=== PATIENT | female | born 1965 | race American Indian/Alaskan Native ===

== ENCOUNTER 2021-09-07 07:07 | Outpatient (CLI) | payer BC ==
--- NOTE | 2021-09-10 16:38 | Mammography Report ---
DIGITAL SCREENING MAMMOGRAM WITH CAD, 09/07/2021 CLINICAL INFORMATION / INDICATION: Routine screening mammography. TECHNIQUE: Digital bilateral 2D mammography was obtained in the craniocaudal and mediolateral obliqu e projections. This examination was interpreted with the benefit of Computer-Aided Detection analysis . COMPARISON: Prior right mammogram 03/13/2011 FINDINGS: Breast Density: There are scattered areas of fibroglandular density. No dominant mass, suspicious calcifications, or architectural distortion in either breast. There is a calcified 1.6 cm benign mass in the upper outer quadrant of the right breast with associat ed biopsy clip. 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 This mass was present on the 2010 mammogram and has decreased in size slightly. There is a second biopsy clip in a stable paulette ign mass at 12:00, middle depth.. No other significant finding within either breast. IMPRESSION: No mammographic evidence of malignancy. Follow up recommendation: Routine yearly screening mammogram. BI-RADS Category 2: BENIGN. A "normal" or negative report should not discourage follow up or biopsy of a clinically significant f inding. A written summary of these findings will be mailed to the patient. The patient will be entered into a mammography reporting system which will generate a reminder letter for the patient's next appointmen t at the appropriate interval. The [employer] recommends yearly mammograms starting at age 40 and continuing as l trena as a woman is in good health. Breast MRI is recommended for women with an approximate 20-25% or greater lifetime risk of breast cancer, including women with a strong family history of breast or ova helga cancer or who have been treated for Hodgkin's disease. Signer Name: Cheri Hart MD Signed: 09/10/2021 4:34 PM Workstation Name: [id number]
== END 2021-09-07 07:08 | disposition home or self-care (01) ==
LOC: MAMMO 07:07
PROVIDERS: ATTEND Internal Medicine
DX: Z12.31 Encounter for screening mammogram for malignant neoplasm of breast (principal); N63.11 Unspecified lump in the right breast, upper outer quadrant
CPT/HCPCS: 77067